=== PATIENT | female | born 1940 | race Caucasian/White ===

== ENCOUNTER 2017-01-20 06:46 | Inpatient (IN) | payer MEDICARE, BC ==
[2017-01-14 10:07] LABS: BASOPHILS 0.5 %; BASOPHILS ABSOLUTE 0.04 10/3/uL (0.0-0.16); EOSINOPHILS 2.6 %; EOSINOPHILS ABSOLUTE 0.23 10/3/uL (0.0-0.53); HEMATOCRIT 38.2 % (36.0-48.0); IMMATURE GRANULOCYTES 0.2 %; IMMATURE GRANULOCYTES ABSOLUTE 0.02 10/3/uL (0.0-0.11); LYMPHOCYTES 29.9 %; LYMPHOCYTES ABSOLUTE 2.61 10/3/uL (0.67-4.30); MEAN CORPUSCULAR HEMOGLOB 29.1 pg (26.0-34.0); MEAN CORPUSCULAR VOLUME 85.5 fL (80-100); MEAN PLATELET VOLUME 10.4 fL (9.2-13.0); MONOCYTES 5.9 %; MONOCYTES ABSOLUTE 0.52 10/3/uL (0.21-1.20); NEUTROPHILS 60.9 %; NEUTROPHILS ABSOLUTE 5.32 10/3/uL (2.02-8.40); PLATELET COUNT 341 10/3/uL (150-400); RBC DISTRIBUTION WIDTH 13.4 % (12.0-16.0); RED CELL COUNT 4.47 10/6/uL (4.0-5.6); WHITE BLOOD CELLS 8.7 10/3/uL (4.5-10.5)
[2017-01-14 10:08] LABS: MANUAL DIFF NO %
[2017-01-14 10:13] LABS: INTERNATIONAL NORMAL RATI 1.1 UNITS (-); PROTIME (NOT ORD) 13.9 SEC (12.0-14.5)
[2017-01-14 10:25] LABS: A/G RATIO 1.3 (0.7-1.9); ALKALINE PHOSPHATASE 122 U/L (45-117); BUN (BLOOD UREA NITROGEN) 23 MG/DL (6-23); CHLORIDE, SERUM 100 MMOL/L (96-112); CO2 (CARBON DIOXIDE) 28 MMOL/L (24-34); CREATININE 0.82 MG/DL (0.55-1.02); GFR AFRICAN AMERICAN 79 ML/MIN (>=60); GFR NON AFRICAN AMERICAN 69 ML/MIN (>=60); GLOBULIN 3.2 G/DL (2.5-4.1); GLUCOSE, SERUM 230 MG/DL (60-99); POTASSIUM, SERUM 4.3 MMOL/L (3.5-5.3); SGOT(AST) 15 U/L (5-40); SGPT(ALT) 24 U/L (5-65); SODIUM, SERUM 132 MMOL/L (135-148); TOTAL BILIRUBIN 0.3 MG/DL (0-1.2); TOTAL PROTEIN 7.2 G/DL (6.0-8.5)
--- NOTE | ~2017-01-20 | OP ---
Record Of Operation [facility] [address] [place]. [address] NAME: AWILDA TALAMANTES : 38 STATUS : ADM IN PAT#: [id number] AGE: 76 ADM/REG DATE : 01/20/17 MR#: [id number] REPORT SERV DATE: 01/20/17 DICTATED BY: SONAM PADILLA JR. 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 NAME OF OPERATION: Bronchoscopy, left thoracoscopy, lysis of adhesions, left upper lobe wedge excision for diagnosis, completion left upper lobectomy, complete mediastinal node dissection, bárbara stations 5, 6, 7, 9, 11L, and intercostal nerve block. SURGEON: Sonam Padilla M.D. RESIDENT SURGEON: Bob Jernigan M.D. CENTRALIZED TRAFFIC CONTROL OPERATOR: Oliver Smith. ANESTHESIA: General endotracheal anesthesia by Dr. Inder Wiley. FINDINGS: The patient was noted to have no endobronchial lesions on bronchoscopy. Mucous secretions were evacuated. There was no contraindication proceeding on with surgery. Upon exploration of the left chest, there was a moderate amount of adhesions that required an extra 30 minutes of operative time. There was a lot of fibrosis along the hilar structures. We initially wedged out the mass given that if it was small cell, we could get a negative margin, then we might be willing to stop at that given that she will likely need chemotherapy in an adjuvant setting. Frozen section of the mass demonstrated this likely to be an atypical carcinoid as opposed to a true small cell lung cancer. Her margins were also very close if not positive. I felt the only way to get a negative margin and given the different diagnosis of the tumor, it was felt a lobectomy was the only treatment option. Mediastinal lymph nodes were sent separately. Final pathology is pending. DETAILS OF OPERATION: After adequate general anesthesia, the patient was intubated. Bronchoscopy was performed noting no endobronchial lesions. A left-sided double-lumen endotracheal tube was then placed. The patient was then positioned in the right lateral decubitus position where the left chest was prepped and draped in routine sterile fashion. A small incision was made overlying the lower intercostal space. A separate anterior trocar incision was also made. Through these two incision sites, above findings were noted. Adhesions were taken down with electrocautery in the Ethicon Enseal bipolar device. Once we were able to get the chest freed up and mobilized, we could identify the lung tissue. We could identify the mass in the left upper lobe. This was wedged out using multiple firings of SETH stapler with tissue reinforcements. Reason this was re-wedged out for diagnosis is that the original pathology was somewhat intubated. Also, it would matter what operation was performed. Frozen section on the mass demonstrated Record Of Operation [address] [place]. [address] NAME: AWILDA TALAMANTES : 38 STATUS : ADM IN PAT#: [id number] AGE: 76 ADM/REG DATE : 01/20/17 MR#: [id number] REPORT SERV DATE: 01/20/17 DICTATED BY: SONAM PADILLA JR. DATE: 01/20/17 REPORT STATUS : Draft TRANSCRIBED BY: VI DATE: 01/20/17 to be an atypical carcinoid, which is different than we thought. We elected because her margins were close if not positive to go and complete the left upper lobectomy. The left superior pulmonary vein was identified and transected with the vascular stapler. The inferior pulmonary vein was preserved. Pulmonary arterial branch was then divided with a vascular stapler. This was a difficult dissection. The fissure was then divided with multiple firings of ESTH stapler with tissue reinforcements. The bronchus was divided with SETH stapler. The specimen was placed in a specimen bag and brought through the anterior trocar site. Nodes from the AP window, subcarinal, inferior pulmonary ligament, hilar regions were removed. The chest was thoroughly irrigated with sterile water. An intercostal nerve block was performed. A 20-Hungarian chest tube was placed. The lung was reinflated. The trocar sites were closed with running Vicryl sutures. The skin was closed with running monofilament suture. A Dermabond dressing was applied. The procedure was terminated at this point. The patient tolerated the procedure well and taken back to recovery room in stable condition. DWIGHT/VI Sonam Padilla Jr., M.D. / [id number] CC: Delon Cobian Jr., III, D.O. Krishnendu Bhadra, M.D.
--- NOTE | ~2017-01-20 | DS ---
Discharge Summary [facility] [address] [place]. [address] NAME: AWILDA TALAMANTES : 38 STATUS : DIS IN PAT#: [id number] AGE: 76 ADM/REG DATE : 01/20/17 MR#: [id number] REPORT SERV DATE: 02/04/17 DICTATED BY: SONAM PADILLA JR. DATE: 02/03/17 REPORT STATUS : Draft TRANSCRIBED BY: VI DATE: 02/03/17 Data Collection from hospitalization DISCHARGE DIAGNOSES: 1. 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 2. Hypertension. 3. Type 2 diabetes. 4. History of small cell lung cancer. 5. Acid reflux. 6. Chronic obstructive pulmonary disease. 7. History of tobacco use. 8. Hyperlipidemia. CONSULTATIONS: None. PROCEDURES PERFORMED: Bronchoscopy; left thoracoscopy; lysis of adhesions; left upper lobe wedge excision for diagnosis; completion left upper lobectomy; complete mediastinal node dissection; bárbara stations 5, 6, 7, 9, 11L and intercostal nerve block on 01/20/2017. PATHOLOGY: Lung, left upper lobe wedge excision - small cell carcinoma. Mediastinal lymph node dissection, level 9 (1) - no metastasis identified (0/1). Mediastinal lymph node dissection, level 7 (1), level 5 (1), level 6 (1), and level 11L (5) - no metastasis identified. Lung, left upper lobectomy - no residual neoplasm identified, emphysematous changes with peripheral pleural plaque with focal dystrophic calcification. MEDICATIONS: ProAir two puffs via inhaler as needed, Norvasc 2.5 mg every morning, Lotensin 40 mg every morning, Invokana 100 mg before breakfast, Pepcid 20 mg twice a day, Lasix 20 mg daily as needed, Neurontin 300 mg twice a day, hydrochlorothiazide 25 mg every morning, Lantus insulin 50 units subcutaneously at bedtime, Glucophage 1000 mg with breakfast and supper, Percocet 5/325 one to two tablets every four-six hours as needed, Zocor 40 mg at bedtime, and Effexor XR 75 mg every morning. CONDITION AT DISCHARGE: Stable. DISPOSITION: The patient was discharged home on a 1500-calorie low-cholesterol diabetic diet with no concentrated carbohydrates and activities as instructed. She would follow up with me on 01/27/2017 and 02/24/2017. She would follow up with her primary care physician as needed. HOSPITAL COURSE: This is a 76-year-old female who has a history of tobacco use as well as a history of insulin-dependent diabetes, COPD, hypertension, dyslipidemia, gastroesophageal reflux disease, and diabetic neuropathy. The patient had been found to have possible small cell carcinoma, limited stage of the left upper lobe. Treatment options were discussed and it was elected to proceed with surgical intervention. She was admitted to the hospital at this time for further evaluation and treatment. Upon admission, she was taken to the operating room where she underwent the above-mentioned procedure. She tolerated this well, and there were no complications. On postop day #1, she Discharge Summary [facility] [address] [facility] [place]. [address] NAME: AWILDA TALAMANTES : 38 STATUS : DIS IN [facility]#: [id number] AGE: 76 ADM/REG DATE : 01/20/17 MR#: [id number] REPORT SERV DATE: 02/04/17 DICTATED BY: SONAM PADILLA JR. DATE: 02/03/17 REPORT STATUS : Draft TRANSCRIBED BY: VI DATE: 02/03/17 had no new complaints. She was tolerating oral intake. Her pain was controlled. There was an air leak from the chest tube. There was mild subcu air. Chest x-ray showed small basilar pneumothorax. She had good pain control. On postop day #2, she denied any lower extremity numbness. The epidural catheter was still in place. She was afebrile. Urine output was adequate. Her urine was clean, dry, and intact. We encouraged her to ambulate. Discharge planning was performed. On 01/23/2017, the epidural catheter was removed and the tip was intact. The patient denied any paresthesias or pain at the insertion site. She did have some weakness. Pain control was adequate. Discharge instructions were given. Due to her improved and stable condition, she was discharged home with the above-stated instructions. Information collected by: Yadira Bowles I submit the above information as my discharge summary. RIN/VI Sonam Padilla Jr., M.D. / [id number] CC: Delon Cobian Jr., III, D.O.
[~2017-01-20 06:46] MED LIST: DIOVAN HCT160 MG/25 PO; HYDROCHLOROT25 MG PO; INVOKANA100 MG PO; L20 PO; LOTE40 PO; NEUR300 PO; PEP20 PO; SPIRIVA INH
[2017-01-20 14:37] LABS: BASOPHILS 0.1 %; BASOPHILS ABSOLUTE 0.03 10/3/uL (0.0-0.16); EOSINOPHILS 0.1 %; EOSINOPHILS ABSOLUTE 0.03 10/3/uL (0.0-0.53); HEMATOCRIT 37.2 % (36.0-48.0); HEMOGLOBIN 12.5 g/dL (12.0-16.0); IMMATURE GRANULOCYTES 0.4 %; IMMATURE GRANULOCYTES ABSOLUTE 0.09 10/3/uL (0.0-0.11); LYMPHOCYTES 11.4 %; LYMPHOCYTES ABSOLUTE 2.29 10/3/uL (0.67-4.30); MEAN CORPUS HGB CONC 33.6 g/dL (32.0-36.0); MEAN CORPUSCULAR HEMOGLOB 28.9 pg (26.0-34.0); MEAN CORPUSCULAR VOLUME 86.1 fL (80-100); MEAN PLATELET VOLUME 10.2 fL (9.2-13.0); MONOCYTES 2.2 %; MONOCYTES ABSOLUTE 0.44 10/3/uL (0.21-1.20); NEUTROPHILS 85.8 %; NEUTROPHILS ABSOLUTE 17.22 10/3/uL (2.02-8.40); PLATELET COUNT 323 10/3/uL (150-400); RBC DISTRIBUTION WIDTH 13.5 % (12.0-16.0); RED CELL COUNT 4.32 10/6/uL (4.0-5.6)
[2017-01-20 14:38] LABS: MANUAL DIFF NO %; WHITE BLOOD CELLS 20.1 10/3/uL (4.5-10.5)
[2017-01-20 14:48] LABS: BUN (BLOOD UREA NITROGEN) 25 MG/DL (6-23); CALCIUM, SERUM 9.1 MG/DL (8.5-10.4); CHLORIDE, SERUM 103 MMOL/L (96-112); CO2 (CARBON DIOXIDE) 29 MMOL/L (24-34); GFR AFRICAN AMERICAN 71 ML/MIN (>=60); GFR NON AFRICAN AMERICAN 61 ML/MIN (>=60); GLUCOSE, SERUM 233 MG/DL (60-99); POTASSIUM, SERUM 4.5 MMOL/L (3.5-5.3); SODIUM, SERUM 140 MMOL/L (135-148)
[2017-01-21 06:30] LABS: BASOPHILS 0.1 %; BASOPHILS ABSOLUTE 0.02 10/3/uL (0.0-0.16); EOSINOPHILS 0 %; HEMATOCRIT 35.9 % (36.0-48.0); IMMATURE GRANULOCYTES 0.5 %; LYMPHOCYTES 10.2 %; LYMPHOCYTES ABSOLUTE 2.04 10/3/uL (0.67-4.30); MEAN CORPUS HGB CONC 33.4 g/dL (32.0-36.0); MEAN CORPUSCULAR HEMOGLOB 29.6 pg (26.0-34.0); MEAN CORPUSCULAR VOLUME 88.4 fL (80-100); MEAN PLATELET VOLUME 10.7 fL (9.2-13.0); NEUTROPHILS 78.2 %; NEUTROPHILS ABSOLUTE 15.59 10/3/uL (2.02-8.40); PLATELET COUNT 297 10/3/uL (150-400); RBC DISTRIBUTION WIDTH 13.9 % (12.0-16.0); RED CELL COUNT 4.06 10/6/uL (4.0-5.6)
[2017-01-21 06:32] LABS: MANUAL DIFF NO %
[2017-01-21 07:19] LABS: CALCIUM, SERUM 8.6 MG/DL (8.5-10.4); CHLORIDE, SERUM 97 MMOL/L (96-112); CREATININE 1.07 MG/DL (0.55-1.02); GFR AFRICAN AMERICAN 58 ML/MIN (>=60); GFR NON AFRICAN AMERICAN 50 ML/MIN (>=60); POTASSIUM, SERUM 4.4 MMOL/L (3.5-5.3)
[2017-01-21 07:20] LABS: BUN (BLOOD UREA NITROGEN) 31 MG/DL (6-23); CO2 (CARBON DIOXIDE) 23 MMOL/L (24-34); GLUCOSE, SERUM 314 MG/DL (60-99); SODIUM, SERUM 132 MMOL/L (135-148)
[2017-01-23] MEDS ORDERED: PCET PO (14:38)
[2017-02-26] MEDS ORDERED: NORV25 PO (17:22)
[2017-02-26] MEDS ORDERED: ZOCOR40 PO (17:23)
[2017-02-26] MEDS ORDERED: PRILO PO (17:23)
[2017-02-26] MEDS ORDERED: GLUCOPHAGE1000 MG PO (17:24)
[2017-02-26] MEDS ORDERED: EFFEXXR75 PO (17:24)
[2017-02-26] MEDS ORDERED: ALIGN4 MG PO (17:25)
[2017-02-26] MEDS ORDERED: ASAB PO (17:25)
[2017-02-26] MEDS ORDERED: HUMALOGPEN SC (17:26)
[2017-02-26] MEDS ORDERED: LANTUSCART SC (17:26)
[2017-02-26] MEDS ORDERED: PROAIRRESP INH (17:27)
== END 2017-01-23 16:46 | disposition home or self-care (01) | DRG 164 ==
LOC: SDC/OF 06:46 → 5NO 16:04
PROVIDERS: Thoracic Surgery (Cardiothoracic Vascular Surgery)
PROC: 0BTG4ZZ Resection of Left Upper Lung Lobe, Percutaneous Endoscopic Approach (ICD-10-PCS; 2017-01-20)
PROC: 07B74ZZ Excision of Thorax Lymphatic, Percutaneous Endoscopic Approach (ICD-10-PCS; 2017-01-20)
PROC: 3E0T3BZ Introduction of Anesthetic Agent into Peripheral Nerves and Plexi, Percutaneous Approach (ICD-10-PCS; 2017-01-20)
PROC: 0BJ08ZZ Inspection of Tracheobronchial Tree, Via Natural or Artificial Opening Endoscopic (ICD-10-PCS; 2017-01-20)
PROC: 0BBG4ZX Excision of Left Upper Lung Lobe, Percutaneous Endoscopic Approach, Diagnostic (ICD-10-PCS; principal; 2017-01-20 08:45)
DX: C7A.090 Malignant carcinoid tumor of the bronchus and lung (principal); J95.812 Postprocedural air leak; J44.9 Chronic obstructive pulmonary disease, unspecified; I34.0 Nonrheumatic mitral (valve) insufficiency; I10 Essential (primary) hypertension; K21.9 Gastro-esophageal reflux disease without esophagitis; I25.10 Atherosclerotic heart disease of native coronary artery without angina pectoris; I73.9 Peripheral vascular disease, unspecified
CPT/HCPCS: 36415; 71010; 71020; 80048; 80053; 82962; 83036; 85025; 85610; 86850; 86900; 86901; 87641; 88305; 88307; 88309; 88313; 88331; 88332; 88341; 88342; 88344; 93005; 94640; A9270-GY; C1751; C1769; J0690; J2250; J2370; J2405; J2710; J2795; J3010

== ENCOUNTER 2017-04-23 10:17 | Observation (INO) | payer MEDICARE, BC ==
[~2017-04-23] VITALS: Ht 160 cm; Wt 73.0 kg
--- NOTE | ~2017-04-23 | DS ---
Discharge Summary [facility] [address] [place]. [address] NAME: AWILDA TALAMANTES : 38 STATUS : DIS Trey PAT#: [id number] AGE: 77 ADM/REG DATE : 04/23/17 MR#: [id number] REPORT SERV DATE: 04/26/17 DICTATED BY: MACK TORRES DATE: 04/25/17 REPORT STATUS : Draft TRANSCRIBED BY: MODL DATE: 04/25/17 ADMISSION DATE: 04/23/2017 DISCHARGE DATE: 04/25/2017 DISCHARGE DIAGNOSES: 1. Chest pain, noncardiogenic. 2. Anemia due to chemotherapy. 3. Lung cancer, status post left lobectomy with chemotherapy. 4. Type 2 diabetes mellitus. 5. Hypertension. 6. Hyperlipidemia. CONSULTANTS DURING THIS HOSPITALIZATION: None. INVASIVE PROCEDURES DONE DURING THIS HOSPITALIZATION: None. IMAGING DONE DURING THIS HOSPITALIZATION: Chest x-ray, which was negative. CTA of the chest negative for PE and a nuclear myocardial imaging study demonstrated no ischemia. An overall low risk vasodilator study. BRIEF HISTORY OF PRESENT ILLNESS: The patient is a 77-year-old female, presented with chest pain so, she was admitted. For detailed history and physical exam, please see note dictated by Dr. Inder Pitts on 04/23/2017. HOSPITAL COURSE: After being admitted to the hospital, this patient was observed. Serial troponins were done, which remained negative. She did have the workup with a CTA and a pulmonary embolism which was negative as well. When I saw the patient in followup, this patient's chest pain had already resolved. However, given her age and her overall comorbidities, we felt that it was better to perform the nuclear study. This was done today and the study was completely negative. This patient is feeling well and says she wants to go home and follow up in the outpatient setting. DISCHARGE DISPOSITION: Home. DISCHARGE ACTIVITY: As tolerated. DISCHARGE DIET: Low-sodium diet. DISCHARGE MEDICATIONS: Norvasc 2.5 mg p.o. daily, aspirin 81 mg once daily, Advil 400 mg p.o. daily p.r.n., benazepril 40 mg p.o. once daily, Lantus 50 units subcu once at bedtime, Prilosec 20 mg once daily, simvastatin 40 mg once at bedtime, Effexor XR 75 mg p.o. daily, ProAir HFA one puff p.o. p.r.n., chemotherapy one dose of IV every 21 days to be administered by Dr. Miranda, metformin 1000 mg p.o. twice daily. DISCHARGE FOLLOWUP: With Dr. Dillon Bah as previously scheduled. With Dr. Shlomo Miranda of Discharge Summary [address] [facility] [address] NAME: AWILDA TALAMANTES : 38 STATUS : DIS Trey PAT#: [id number] AGE: 77 ADM/REG DATE : 04/23/17 MR#: [id number] REPORT SERV DATE: 04/26/17 DICTATED BY: MACK TORRES DATE: 04/25/17 REPORT STATUS : Draft TRANSCRIBED BY: VI DATE: 04/25/17 Oncology as previously scheduled. About 25 minutes spent planning this patient's discharge, reconciling medications, discussing hospital care, follow up with the patient, and also discussing findings and documenting this discharge. ALINA/VI Mack Torres M.D. / [id number] CC: Delon Mayen III, D.O. Mark S Womack IV, M.D.
--- NOTE | ~2017-04-23 | HP ---
History And Physical [place] [id number] [facility] [place]. [address] NAME: AWILDA TALAMANTES : 38 STATUS : ADM Trey PAT#: [id number] AGE: 77 ADM/REG DATE : 04/23/17 MR#: [id number] REPORT SERV DATE: 04/23/17 DICTATED BY: HARSHAL LE DATE: 04/23/17 REPORT STATUS : Draft TRANSCRIBED BY: MODL DATE: 04/23/17 DATE OF ADMISSION: 04/23/2017 ATTENDING PHYSICIAN: Dr. Carnes. REASON FOR ADMISSION: Chest pain. HISTORY OF PRESENT ILLNESS: This is a 77-year-old white female with what sounds like small cell carcinoma of the lung. She is undergoing chemotherapy postoperatively. Dr. Dani Padilla did an upper lobectomy in January. She has not recovered completely but is receiving chemotherapy per Dr. Miranda. She went to Dr. Miranda's office and gave blood for analysis to someone during the chemotherapy and developed a chest heaviness shortness of breath. She also did have history of having discovered a leaky mitral valve prior to the discovery of her lung cancer. She has had no swelling of the lower extremities. No nausea, vomiting, or sweating. She was seen in the emergency room by Dr. Hernandez who brittany troponins that were negative. EKG is normal and unchanged from February. CTA of the chest was done that showed no evidence of pulmonary embolism. She did have an interval left upper lobe removal with 2 foci of localized pleural effusion. She had lymph nodes in the mediastinum that were slightly more prominent than previous with the consideration of reactive versus metastatic disease is a consideration. The hospitalist service was asked to admit after being denied by Cardiology because of the comorbid conditions. PAST MEDICAL HISTORY: She just recently had the lobectomy done. She has a history of type 2 diabetes, hypertension, hyperlipidemia, fatigue, and acid reflux. SOCIAL HISTORY: She is . Lives in [place]. She is 77 years old and has been for most of her life, she said probably 63 years at least she says. She has 2 girls who are alive and well. She does not take any alcohol. She quit smoking cigarettes when she had the diagnosis of lung cancer, but she had smoked for over 60 years. FAMILY HISTORY: Two girls alive and well and she has two brothers who had COPD and about 14 half brothers and sisters. Her mother and father had no known illnesses and there are no known illnesses that run in the family. REVIEW OF SYSTEMS: She had the chest pain that has resolved now. She has had no shortness of breath. No melena, hematemesis, fits, seizures, convulsions, or unilateral weakness. Blood sugars have been good, she believes. History And Physical [address] [place]. [address] NAME: AWILDA TALAMANTES : 38 STATUS : ADM Trey PAT#: [id number] AGE: 77 ADM/REG DATE : 04/23/17 MR#: [id number] REPORT SERV DATE: 04/23/17 DICTATED BY: HARSHAL LE DATE: 04/23/17 REPORT STATUS : Draft TRANSCRIBED BY: VI DATE: 04/23/17 Her primary care physician is Dr. Dillon Bah. The remainder of the review of systems is negative. PHYSICAL EXAMINATION: GENERAL: Older white female, in no acute distress. VITAL SIGNS: Blood pressure now 180/70 with a heart rate of 90, respiratory rate 18, afebrile. HEENT: EOMI. Sclerae clear. Conjunctivae pink. NECK: No bruit without any JVD. CHEST: Clear to A and P. HEART: Regular S1, S2 without murmur, gallop, or click. BREASTS: Without mass. ABDOMEN: Soft, nontender. Bowel sounds positive. EXTREMITIES: Have no edema. Distal pulses intact in the dorsalis pedis and posterior tibial. NEUROLOGIC: She withdraws to plantar stimulation. Rice Drier is equal and symmetric bilaterally. Coordination intact. She is symmetric neurologically. LYMPHATICS: There is no cervical adenopathy palpable. No other nodes noticed. SKIN: Without rash, ecchymosis, or bruising. LABORATORY DATA: The CT scan as described above with some reactive lymphadenopathy versus metastatic disease. Chest x-ray PA and lateral, shows following lobectomy for removal of left-sided malignancy, basilar atelectasis. Heart size is normal. Port-A-Cath in good position. The sodium is 139, potassium 4.5, creatinine 0.62, BUN 16, glucose 158, magnesium 1.2. Troponin less than 0.02. Calcium 9.3. Hemoglobin is 9.6, hematocrit 28.9, white count is 5.6, platelets are 393,000, and MCV is 83.5. INR 1.1. ASSESSMENT: 1. Chest pain, recurrent, heaviness associated with angina pectoris in the face of an elderly diabetic. This could be atherosclerotic cardiovascular disease; however, she has significant comorbid problems. 2. Anemia secondary to chemotherapy. 3. Status post left upper lobectomy for cancer she says small-cell. 4. Chemotherapy now for lung cancer without evidence of non-small cell. She said there is evidence of small-cell and they are suggesting prophylactic brain irradiation which would confirm this. 5. Mitral regurgitation by echocardiogram, but I do not hear a murmur today with regard to that. 6. COPD likely from [id number] history of smoking. 7. Lymphadenopathy on CT scan of the chest, increasing in size from previous, worrisome for metastatic disease. PLAN: To rule out [place] with serial troponins. I am going to go ahead and do a nuclear medicine stress test after having discussed this with Nalini Rivas and as opposed to History And Physical [address] [address] NAME: AWILDA TALAMANTES : 38 STATUS : ADM Trey PAT#: [id number] AGE: 77 ADM/REG DATE : 04/23/17 MR#: [id number] REPORT SERV DATE: 04/23/17 DICTATED BY: HARSHAL LE DATE: 04/23/17 REPORT STATUS : Draft TRANSCRIBED BY: MODL DATE: 04/23/17 cardiac catheterization. If the nuclear medicine stress test is positive, we will pursue coronary angiography and possible PCI, however for now let us look at the results of the nuclear medicine stress test. Replace the magnesium and see how she does. DB/MODL Harshal Le M.D. / [id number] CC: Delon Mayen III, D.O. Mark S Womack IV, M.D. Kris [place] Jr., M.D.
[~2017-04-23 10:17] MED LIST changes: +ALIGN4 MG PO; +ASAB PO; +EFFEXXR75 PO; +GLUCOPHAGE1000 MG PO; +HUMALOGPEN SC; +LANTUSCART SC; +NORV25 PO; +PCET PO; +PRILO PO; +PROAIRRESP INH; +ZOCOR40 PO
[2017-04-23 10:52] LABS: BASOPHILS 0.4 %; BASOPHILS ABSOLUTE 0.02 10/3/uL (0.0-0.16); EOSINOPHILS 0.2 %; EOSINOPHILS ABSOLUTE 0.01 10/3/uL (0.0-0.53); IMMATURE GRANULOCYTES 0.5 %; IMMATURE GRANULOCYTES ABSOLUTE 0.03 10/3/uL (0.0-0.11); LYMPHOCYTES 32.4 %; LYMPHOCYTES ABSOLUTE 1.82 10/3/uL (0.67-4.30); MEAN CORPUS HGB CONC 33.2 g/dL (32.0-36.0); MEAN CORPUSCULAR HEMOGLOB 27.7 pg (26.0-34.0); MEAN CORPUSCULAR VOLUME 83.5 fL (80-100); MEAN PLATELET VOLUME 8.5 fL (9.2-13.0); MONOCYTES 1.1 %; MONOCYTES ABSOLUTE 0.06 10/3/uL (0.21-1.20); NEUTROPHILS 65.4 %; NEUTROPHILS ABSOLUTE 3.67 10/3/uL (2.02-8.40); PLATELET COUNT 393 10/3/uL (150-400); RBC DISTRIBUTION WIDTH 15.6 % (12.0-16.0)
[2017-04-23 10:53] LABS: ER CBC TAT 0 Hrs 05 Mins; HEMATOCRIT 28.9 % (36.0-48.0); HEMOGLOBIN 9.6 g/dL (12.0-16.0); MANUAL DIFF NO %; RED CELL COUNT 3.46 10/6/uL (4.0-5.6); WHITE BLOOD CELLS 5.6 10/3/uL (4.5-10.5)
[2017-04-23 11:00] LABS: INTERNATIONAL NORMAL RATI 1.1 UNITS (-); PARTIAL THROMBO TIME 25.2 SEC (22.5-37.2); PROTIME (NOT ORD) 13.7 SEC (12.0-14.5)
[2017-04-23 11:10] LABS: BUN (BLOOD UREA NITROGEN) 16 MG/DL (6-23); CALCIUM, SERUM 9.3 MG/DL (8.5-10.4); CHEST PAIN PROFILE TAT 0 Hrs 22 Mins; CHLORIDE, SERUM 104 MMOL/L (96-112); CO2 (CARBON DIOXIDE) 24 MMOL/L (24-34); CREATININE 0.62 MG/DL (0.55-1.02); GFR AFRICAN AMERICAN 99 ML/MIN (>=60); GFR NON AFRICAN AMERICAN 86 ML/MIN (>=60); GLUCOSE, SERUM 158 MG/DL (60-99); POTASSIUM, SERUM 4.5 MMOL/L (3.5-5.3); SODIUM, SERUM 139 MMOL/L (135-148); TROPONIN I <0.02 NG/ML (<0.05)
[2017-04-23] MEDS ORDERED: LANTUS SC (11:21)
[2017-04-23] MEDS ORDERED: NORV25 PO (11:21)
[2017-04-23] MEDS ORDERED: EFFEXXR75 PO (11:21)
[2017-04-23] MEDS ORDERED: ZOCOR40 PO (11:21)
[2017-04-23] MEDS ORDERED: ASAB PO (11:22)
[2017-04-23] MEDS ORDERED: LOTE40 PO (11:22)
[2017-04-23] MEDS ORDERED: PROAIR HFA PO (11:22)
[2017-04-23] MEDS ORDERED: ADVIL PO (11:22)
[2017-04-23] MEDS ORDERED: CHEMOTHERAPY IV (11:24)
[2017-04-23] MEDS ORDERED: GLUCOPHAGE1000 MG PO (11:25)
[2017-04-23] MEDS ORDERED: PRILO PO (11:26)
[2017-04-24 02:50] LABS: BUN (BLOOD UREA NITROGEN) 13 MG/DL (6-23); CHLORIDE, SERUM 105 MMOL/L (96-112); CREATININE 0.53 MG/DL (0.55-1.02); GFR AFRICAN AMERICAN 105 ML/MIN (>=60); GFR NON AFRICAN AMERICAN 90 ML/MIN (>=60); POTASSIUM, SERUM 3.8 MMOL/L (3.5-5.3); SODIUM, SERUM 140 MMOL/L (135-148); TROPONIN I <0.02 NG/ML (<0.05)
[2017-04-24 03:17] LABS: CO2 (CARBON DIOXIDE) 29 MMOL/L (24-34); GLUCOSE, SERUM 122 MG/DL (60-99)
[2017-04-25 05:38] LABS: HEMATOCRIT 26.2 % (36.0-48.0); HEMOGLOBIN 8.7 g/dL (12.0-16.0); MANUAL DIFF YES %; MEAN CORPUS HGB CONC 33.2 g/dL (32.0-36.0); MEAN CORPUSCULAR HEMOGLOB 27.4 pg (26.0-34.0); MEAN CORPUSCULAR VOLUME 82.6 fL (80-100); MEAN PLATELET VOLUME 8.9 fL (9.2-13.0); PLATELET COUNT 268 10/3/uL (150-400); RBC DISTRIBUTION WIDTH 15.4 % (12.0-16.0); RED CELL COUNT 3.17 10/6/uL (4.0-5.6); WHITE BLOOD CELLS 2.7 10/3/uL (4.5-10.5)
[2017-04-25 05:49] LABS: BUN (BLOOD UREA NITROGEN) 15 MG/DL (6-23); CALCIUM, SERUM 8.9 MG/DL (8.5-10.4); CHLORIDE, SERUM 104 MMOL/L (96-112); CO2 (CARBON DIOXIDE) 26 MMOL/L (24-34); CREATININE 0.62 MG/DL (0.55-1.02); GFR AFRICAN AMERICAN 99 ML/MIN (>=60); GFR NON AFRICAN AMERICAN 86 ML/MIN (>=60); POTASSIUM, SERUM 4.2 MMOL/L (3.5-5.3); SODIUM, SERUM 139 MMOL/L (135-148)
[2017-04-25 05:50] LABS: GLUCOSE, SERUM 207 MG/DL (60-99)
[2017-04-25 06:25] LABS: BAND NEUTROPHILS 3 %; EOSINOPHILS 1 %; EOSINOPHILS ABSOLUTE (CALC) 0.03 10/3/uL (0.0-0.53); LYMPHOCYTES 51 %; LYMPHOCYTES ABSOLUTE (CALC) 1.38 10/3/uL (0.67-4.30); MONOCYTES 1 %; MONOCYTES ABSOLUTE (CALC) 0.03 10/3/uL (0.21-1.20); NEUTROPHILS ABSOLUTE (CALC) 1.27 10/3/uL (2.02-8.40); SEGMENTED NEUTROPHIL (0) 44 %; TOTAL NUCLEATED CELLS 100
[2017-04-25 06:26] LABS: PLATELET ESTIMATE ADQ (ADEQUATE); POLYCHROMASIA 1+ (2-5/OIF) (0-1/OIF)
== END 2017-04-25 15:19 | disposition home or self-care (01) ==
LOC: ER 10:17 → CDU1 14:54 → CDU2 14:54
PROVIDERS: Emergency Medicine; Internal Medicine
DX: R07.89 Other chest pain (principal); D64.81 Anemia due to antineoplastic chemotherapy; C34.91 Malignant neoplasm of unspecified part of right bronchus or lung; R59.0 Localized enlarged lymph nodes; I34.0 Nonrheumatic mitral (valve) insufficiency; J44.9 Chronic obstructive pulmonary disease, unspecified; E11.9 Type 2 diabetes mellitus without complications; I10 Essential (primary) hypertension; E78.5 Hyperlipidemia, unspecified; Z90.2 Acquired absence of lung [part of]; Z87.891 Personal history of nicotine dependence; Z88.5 Allergy status to narcotic agent; Z88.8 Allergy status to other drugs, medicaments and biological substances; Z79.4 Long term (current) use of insulin; Z79.82 Long term (current) use of aspirin; Z79.84 Long term (current) use of oral hypoglycemic drugs; Z79.899 Other long term (current) drug therapy
CPT/HCPCS: 71020; 71275; 78452; 80048; 82962; 83735; 84484; 85025; 85610; 85730; 93005; 93017; 96365; 96372; 96374; 96376; 99285; A9270-GY; A9502; G0378; J0153; J3475; Q9967